=== PATIENT | female | born 1940 | race Asian ===

== ENCOUNTER 2024-03-28 00:41 | Emergency (ER) | payer OTHER ==
[~2024-03-28] VITALS: Ht 147.3 cm; Wt 57.7 kg
[2024-03-28 01:15] LABS: BASOPHILS % (AUTO) 0.5 % (0.0-2.0); EOSINOPHILS % (AUTO) 2.8 % (1.0-6.0); HEMATOCRIT 41.8 % (36-46); HEMOGLOBIN 13.7 g/dL (12.0-16.0); LYMPHOCYTES # (AUTO) 2.9 K/uL (1.0-4.8); LYMPHOCYTES % (AUTO) 29.9 % (22.0-44.0); MEAN CORPUSCULAR HEMOGLOBIN 30.3 pg (26.0-34.0); MEAN CORPUSCULAR HGB CONC 32.7 G/dL (31.0-37.0); MEAN CORPUSCULAR VOLUME 93 fL (80-100); MONOCYTES # (AUTO) 0.5 K/uL (0.1-1.0); MONOCYTES % (AUTO) 4.8 % (2.0-9.0); PLATELET COUNT (AUTO) 172 K/uL (150-450); RED BLOOD CELL COUNT(AUTO) 4.52 MIL/uL (4.00-5.20); RED CELL DISTRIBUTION WIDTH 12.7 % (11.5-14.5); WHITE BLOOD COUNT (AUTO) 9.8 K/uL (4.5-11.0)
[2024-03-28 01:25] LABS: APPEARANCE,URINE CLEAR (CLEAR); BILIRUBIN,URINE NEGATIVE (NEGATIVE); COLOR,URINE COLORLESS (YELLOW); GLUCOSE, URINE (UA) NEGATIVE (NEGATIVE); KETONES,URINE NEGATIVE (NEGATIVE); LEUKOCYTE ESTERASE ,URINE NEGATIVE (NEGATIVE); NITRATE,URINE NEGATIVE (NEGATIVE); OCCULT BLOOD,URINE NEGATIVE (NEGATIVE); PROTEIN,URINE 30-70 mg/dL (NEGATIVE); SPECIFIC GRAVITIY, URINE 1.015 (1.003-1.030); UROBILINOGEN,URINE <=1.0 mg/dL (<=1.0)
[2024-03-28 01:28] LABS: ANION GAP 4 mmol/L (8-16); CALCIUM, TOTAL 9.9 mg/dL (8.8-10.5); CARBON DIOXIDE 30 mmol/L (22-29); CHLORIDE 104 mmol/L (98-107); GLOMERULAR FILTR. RATE CALC > 60 mL/min (>60); GLUCOSE,RANDOM 150 mg/dL (70-110); POTASSIUM 3.6 mmol/L (3.5-5.1); SODIUM SERUM 138 mmol/L (136-145); UREA NITROGEN, BLOOD 22 mg/dL (7-18)
[2024-03-28] MEDS ORDERED: SODIUM CHLORIDE 0.9% 100 ML ONE (01:31)
[2024-03-28 01:32] LABS: TROPONIN I-HIGH SENSITIVITY 6 ng/L (<51)
[2024-03-28] MEDS ORDERED: IOHEXOL 350 MG/ML 100 ML VIAL ONE (01:32)
[2024-03-28 01:33] LABS: ALANINE AMINOTRANSFERASE 36 U/L (12-78); ALBUMIN 3.7 g/dL (3.4-5.0); ALKALINE PHOSPHATASE 114 U/L (46-116); ASPARTATE AMINOTRANSFERASE 31 U/L (15-37); BILIRUBIN,TOTAL 0.5 mg/dL (0.1-1.0); LIPASE 112 U/L (16-77); TOTAL PROTEIN, SERUM 8.2 g/dL (6.4-8.2)
[2024-03-28] MEDS: ONDANSETRON HCL 4 MG/2 ML VIAL IVP ONE (01:36)
[2024-03-28] MEDS: FAMOTIDINE 20 MG/2 ML VIAL IVP ONE (01:36)
[2024-03-28] MEDS: MORPHINE SULFATE 2 MG/ML SYRINGE IVP ONE (01:36)
[2024-03-28] MEDS: SODIUM CHLORIDE 0.9% 1,000 ML IV ONE (01:39)
[2024-03-28] MEDS: KETOROLAC TROMETHAMINE 30 MG/ML VIAL IVP ONE (01:51)
[2024-03-28] MEDS: PIPERACILLIN/TAZO 3.375 GM/D5W 50 ML IV ONE (05:35)
[2024-03-28 06:05] LABS: COVID AG,FIA SOURCE NASAL SWAB
[2024-03-28 06:10] VITALS: BP 156/76; PULSE 53; RESP 16; TEMP 98.3; O2SAT 94
[2024-03-28 06:36] LABS: SARS-COV2 (COVID) ANTIGEN,FIA Negative (Negative)
== END 2024-03-28 07:31 | disposition short-term general hospital (02) ==
LOC: EMS 00:41
DX: R11.2 Nausea with vomiting, unspecified (principal); R10.33 Periumbilical pain; K44.9 Diaphragmatic hernia without obstruction or gangrene; I10 Essential (primary) hypertension; E78.00 Pure hypercholesterolemia, unspecified; F03.90 Unspecified dementia, unspecified severity, without behavioral disturbance, psychotic disturbance, mood disturbance, and anxiety; Z90.49 Acquired absence of other specified parts of digestive tract; Z20.822 Contact with and (suspected) exposure to COVID-19
CPT/HCPCS: 99285; 74177; 96365; 96375; 76705; 96361; 87426; 80048; 80076; 81003; 83690; 84484; 85025; 36415; 93005; Q9967; J3490; J1885; J2270; J2405; J2543; J7030; J7050